=== PATIENT | female | born 1995 | race Caucasian/White ===

== ENCOUNTER 2019-12-31 22:35 | Emergency (ER) | payer BC, MEDICAID ==
[2019-12-31 22:43] VITALS: BP 142/93
[2019-12-31 23:34] LABS: BASOPHILS % 0.8 % (0.0-2.0); EOSINOPHILS % 1.6 % (0.0-5.0); HEMATOCRIT. 37.6 % (36.0-48.0); HEMOGLOBIN. 12.4 g/dL (12.0-16.0); LYMPHOCYTES % 34.8 % (20.0-50.0); MEAN CORPUSCULAR HEMOGLOBIN 26.7 pg (28.0-32.0); MEAN CORPUSCULAR VOLUME 80.8 fL (81.0-99.0); MEAN PLATELET VOLUME 8.9 fl (7.4-10.4); NEUTROPHILS % 54.8 % (40.0-76.0); PLATELET 258 x1000/uL (130-400); RED BLOOD CELL COUNT 4.65 mill/uL (4.2-5.4); RED CELL DISTRIBUTION WIDTH 15.2 % (11.6-14.6)
[2019-12-31 23:47] LABS: CHLORIDE 107 mEq/L (98-107)
== END 2020-01-01 02:35 | disposition home or self-care (01) ==
LOC: ER 22:35
DX: R05 Cough (principal); R07.89 Other chest pain
CPT/HCPCS: 36415; 80053; 84484; 85025; 93005; 99284

== ENCOUNTER 2022-01-17 21:56 | Emergency (ER) | payer BC, MEDICAID, MEDICARE ==
[~2022-01-17] VITALS: Ht 170.2 cm; Wt 94.5 kg
[2022-01-17] MEDS ORDERED: IOHEXOL-350 100 ML BOTTLE ONE (22:19)
[2022-01-17 22:48] LABS: BASOPHILS % 0.8 % (0.0-2.0); HEMATOCRIT. 41.2 % (36.0-48.0); HEMOGLOBIN. 13.2 g/dL (12.0-16.0); LYMPHOCYTES % 31.9 % (20.0-50.0); MEAN CORPUSCULAR HEMOGLOBIN 25.3 pg (28.0-32.0); MEAN CORPUSCULAR VOLUME 79.2 fL (81.0-99.0); MEAN PLATELET VOLUME 8.1 fl (7.4-10.4); MONOCYTES % 5.2 % (2.0-8.0); NEUTROPHILS % 60.1 % (40.0-76.0); PLATELET 392 x1000/uL (130-400); RED CELL DISTRIBUTION WIDTH 17.4 % (11.6-14.6)
[2022-01-17 23:01] LABS: CHLORIDE 107 mEq/L (98-107)
[2022-01-17 23:12] LABS: B-HCG QUANTITATIVE 4 mIU/mL (<3); ETHANOL BLOOD < 10 mg/dL
[2022-01-17 23:55] LABS: CLARITY URINE CLEAR (CLEAR); COLOR URINE YELLOW (YELLOW); KETONES URINE NEGATIVE (NEGATIVE); LEUKOCYTE ESTERASE URINE 2+ (NEGATIVE); NITRITE URINE NEGATIVE (NEGATIVE); OCCULT BLOOD URINE 3+ (NEGATIVE); PROTEIN URINE NEGATIVE (NEGATIVE); SPECIFIC GRAVITY URINE 1.064 (1.005-1.030); UROBILINOGEN URINE 0.2 E.U./dL (0.2-1.0)
[2022-01-18 00:10] LABS: *AMPHETAMINES SCREEN URINE NEGATIVE (NEGATIVE); *BARBITURATES SCREEN URINE NEGATIVE (NEGATIVE); *BENZODIAZEPINES SCREEN URINE NEGATIVE (NEGATIVE); *COCAINE SCREEN URINE NEGATIVE (NEGATIVE); CANNABINOID URINE SCREEN NEGATIVE (NEGATIVE); METHADONE URINE SCREEN NEGATIVE (NEGATIVE); OPIATES URINE SCREEN NEGATIVE (NEGATIVE); PHENCYCLIDINE URINE SCREEN NEGATIVE (NEGATIVE)
[2022-01-18] MEDS ORDERED: ASPIRIN 325MG EC TABLET PO SCH (05:00)
[2022-01-18] MEDS ORDERED: ASPIRIN 325MG EC TABLET PO ONE (05:00)
[2022-01-18 14:38] VITALS: BP 117/75
== END 2022-01-18 14:47 | disposition short-term general hospital (02) ==
LOC: ER 21:56 → CANBEDREQ 01-18 11:51 → ER 01-18 14:47
DX: G45.9 Transient cerebral ischemic attack, unspecified (principal); R20.0 Anesthesia of skin; R94.31 Abnormal electrocardiogram [ECG] [EKG]; Z98.890 Other specified postprocedural states; Z20.822 Contact with and (suspected) exposure to COVID-19
CPT/HCPCS: 36415; 70450; 70496; 70498; 71045; 80053; 80305; 80320; 81003; 82962; 84484; 84702; 85025; 87426; 93005; 99291; C9803; Q9967; G0480